=== PATIENT | female | born 1930 | race Caucasian/White ===

== ENCOUNTER 2017-07-03 11:50 | Inpatient (IN) | payer MEDICARE, OTHER ==
[~2017-07-03] VITALS: Ht 154.9 cm; Wt 68.2 kg
[~2017-07-03 11:50] MED LIST: ALBU8.5H8 IH; APIX5TAB PO; ATOR20TA65 PO; CLON.3 TD; ISOS60TA4 PO; LEVO75TA4 PO; MINO10TA3 PO; MOME17N NASAL; OLOP2.5D OU; OXYB5TAB10 PO; PIND5TAB PO
[2017-07-03] MEDS ORDERED: CYAN250014 PO (11:59)
[2017-07-03] MEDS ORDERED: SPIR50 PO (11:59)
[2017-07-03] MEDS ORDERED: CETI-193 PO (11:59)
[2017-07-03] MEDS ORDERED: PIND5TAB PO (11:59)
[2017-07-03] MEDS ORDERED: VITAD400 PO (11:59)
[2017-07-03] MEDS ORDERED: GLUC1CAP13 PO (11:59)
[2017-07-03] MEDS ORDERED: IBUP-1506 PO (11:59)
[2017-07-03] MEDS ORDERED: PINDOLOL 5 MG TABLET PO ONE (13:15)
[2017-07-03] MEDS: ASPIRIN 325 MG TABLET PO ONE ×2 (13:25→13:34)
[2017-07-03 13:26] LABS: BASOPHILS # (AUTO) 0.04 K/uL (0.00-0.20); BASOPHILS % (AUTO) 0.3 % (0.0-2.0); EOSINOPHILS % (AUTO) 0.62 % (1.0-6.0); HEMATOCRIT 27.2 % (36-46); LYMPHOCYTES # (AUTO) 1.1 K/uL (1.0-4.8); LYMPHOCYTES % (AUTO) 6.8 % (22.0-44.0); MEAN CORPUSCULAR HEMOGLOBIN 28.1 pg (26.0-34.0); MEAN CORPUSCULAR HGB CONC 32.9 G/dL (31.0-37.0); MEAN CORPUSCULAR VOLUME 86 fL (80-100); MONOCYTES # (AUTO) 0.7 K/uL (0.1-1.0); MONOCYTES % (AUTO) 4.5 % (2.0-9.0); NEUTROPHILS # (AUTO) 13.7 K/uL (1.8-7.7); PLATELET COUNT (AUTO) 363 K/uL (150-450); RED BLOOD CELL COUNT(AUTO) 3.19 MIL/uL (4.00-5.20); WHITE BLOOD COUNT (AUTO) 15.5 K/uL (4.5-11.0)
[2017-07-03 13:30] LABS: NEUTROPHILS % (AUTO) 87.9 % (40.0-70.0)
[2017-07-03 13:43] LABS: CALCIUM, TOTAL 10.1 mg/dL (8.8-10.5); CREATININE 2.7 mg/dL (0.60-1.30); POTASSIUM 5.3 mmol/L (3.5-5.1)
[2017-07-03 13:57] LABS: ALBUMIN 3.1 g/dL (3.4-5.0); BILIRUBIN,TOTAL 0.8 mg/dL (0.1-1.0); MAGNESIUM 1.6 mg/dL (1.80-2.40); PHOSPHORUS 3.4 mg/dL (2.5-4.9); THYROID STIMULATING HORMONE 4.63 uIU/mL (0.36-3.74); TOTAL PROTEIN, SERUM 7.4 g/dL (6.4-8.2)
[2017-07-03] MEDS ORDERED: SODIUM CHLORIDE 0.9% 1,000 ML IV ONE (14:30)
[2017-07-03] MEDS ORDERED: BISACODYL 10 MG RECTAL RECTAL SUPPOSITORY PR PRN (14:45)
[2017-07-03] MEDS ORDERED: ALBUTEROL SULFATE 2.5 MG/0.5 ML NEB SOLUTION NEB PRN (14:45)
[2017-07-03] MEDS ORDERED: CloNIDine HCL 0.1 MG TABLET PO PRN (15:00)
[2017-07-03] MEDS: METOPROLOL TARTRATE 25 MG TABLET PO SCH ×2 (15:23→20:57)
[2017-07-03] MEDS: CefTRIAXone 1 GM/DEXTROSE 50 ML IV SCH (15:28)
[2017-07-03] MEDS ORDERED: ACETAMINOPHEN 325 MG TABLET PO PRN (15:45)
[2017-07-03] MEDS ORDERED: 0.9% SODIUM CHLORIDE 10 ML SYRINGE IVP PRN (15:45)
[2017-07-03] MEDS ORDERED: ONDANSETRON HCL 4 MG/2 ML VIAL IVP PRN (15:45)
[2017-07-03 17:39] LABS: APPEARANCE,URINE CLEAR (CLEAR); GLUCOSE, URINE (UA) NEGATIVE (NEGATIVE); KETONES,URINE NEGATIVE (NEGATIVE); LEUKOCYTE ESTERASE ,URINE NEGATIVE (NEGATIVE); OCCULT BLOOD,URINE LARGE (NEGATIVE); PH,URINE 5.5 (5.0-8.0); PROTEIN,URINE POS 1+ (NEGATIVE)
[2017-07-03 17:53] LABS: SQUAMOUS EPITHELIAL CELL,UR Moderate /LPF (None Seen)
[2017-07-03 18:00] VITALS: BP 166/94
[2017-07-03] MEDS: ACETAMINOPHEN 325 MG TABLET PO PRN (19:01)
[2017-07-03 20:09] VITALS: BP 142/71
[2017-07-03] MEDS: DOCUSATE SODIUM 100 MG CAPSULE PO SCH (20:58)
[2017-07-03] MEDS: APIXABAN 2.5 MG TABLET PO SCH (20:58)
[2017-07-04 00:04] VITALS: BP 113/58
[2017-07-04 05:15] VITALS: BP 142/77
[2017-07-04 06:39] LABS: CALCIUM, TOTAL 9.4 mg/dL (8.8-10.5); CREATININE 2.51 mg/dL (0.60-1.30); POTASSIUM 5.5 mmol/L (3.5-5.1)
[2017-07-04 06:55] LABS: BASOPHILS % (AUTO) 0.4 % (0.0-2.0); EOSINOPHILS % (AUTO) 0.7 % (1.0-6.0); HEMATOCRIT 23.7 % (36-46); HEMOGLOBIN 7.8 g/dL (12.0-16.0); LYMPHOCYTES # (AUTO) 1.3 K/uL (1.0-4.8); LYMPHOCYTES % (AUTO) 10.8 % (22.0-44.0); MEAN CORPUSCULAR HEMOGLOBIN 28.1 pg (26.0-34.0); MEAN CORPUSCULAR HGB CONC 32.9 G/dL (31.0-37.0); MEAN CORPUSCULAR VOLUME 85 fL (80-100); MONOCYTES # (AUTO) 0.8 K/uL (0.1-1.0); MONOCYTES % (AUTO) 7.2 % (2.0-9.0); NEUTROPHILS # (AUTO) 9.5 K/uL (1.8-7.7); NEUTROPHILS % (AUTO) 80.9 % (40.0-70.0); PLATELET COUNT (AUTO) 321 K/uL (150-450); RED BLOOD CELL COUNT(AUTO) 2.78 MIL/uL (4.00-5.20); RED CELL DISTRIBUTION WIDTH 15.1 % (11.5-14.5); WHITE BLOOD COUNT (AUTO) 11.7 K/uL (4.5-11.0)
[2017-07-04 08:01] VITALS: BP 120/56
[2017-07-04] MEDS: METOPROLOL TARTRATE 25 MG TABLET PO SCH ×2 (09:14→20:16)
[2017-07-04] MEDS: DOCUSATE SODIUM 100 MG CAPSULE PO SCH ×3 (09:14→20:21)
[2017-07-04] MEDS: PANTOPRAZOLE SODIUM 40 MG DR TABLET PO SCH (09:14)
[2017-07-04] MEDS: APIXABAN 2.5 MG TABLET PO SCH ×2 (09:14→20:16)
[2017-07-04] MEDS ORDERED: SODIUM CHLORIDE 0.9% 1,000 ML IV ONE (10:30)
[2017-07-04] MEDS: SOD FERRIC GLUC COMPLX/SUCROSE 125 MG in SODIUM CHLORIDE 0.9% 100 ML IV SCH (11:22)
[2017-07-04 11:29] VITALS: BP 146/68
[2017-07-04 15:48] VITALS: BP 133/81
[2017-07-04] MEDS: CefTRIAXone 1 GM/DEXTROSE 50 ML IV SCH (16:07)
[2017-07-04] MEDS: ACETAMINOPHEN 325 MG TABLET PO PRN (16:07)
[2017-07-04 20:14] VITALS: BP 124/61
[2017-07-05] VITALS (7 sets, daily range): BP systolic 115–145; BP diastolic 59–98
[2017-07-05 07:44] LABS: BASOPHILS % (AUTO) 0.3 % (0.0-2.0); EOSINOPHILS % (AUTO) 1.8 % (1.0-6.0); HEMATOCRIT 24.7 % (36-46); HEMOGLOBIN 8.1 g/dL (12.0-16.0); LYMPHOCYTES # (AUTO) 1.1 K/uL (1.0-4.8); LYMPHOCYTES % (AUTO) 9.8 % (22.0-44.0); MEAN CORPUSCULAR HEMOGLOBIN 27.7 pg (26.0-34.0); MEAN CORPUSCULAR HGB CONC 32.8 G/dL (31.0-37.0); MEAN CORPUSCULAR VOLUME 85 fL (80-100); MONOCYTES # (AUTO) 0.9 K/uL (0.1-1.0); MONOCYTES % (AUTO) 7.6 % (2.0-9.0); NEUTROPHILS % (AUTO) 80.5 % (40.0-70.0); PLATELET COUNT (AUTO) 335 K/uL (150-450); RED BLOOD CELL COUNT(AUTO) 2.92 MIL/uL (4.00-5.20); WHITE BLOOD COUNT (AUTO) 11.2 K/uL (4.5-11.0)
[2017-07-05 07:47] LABS: CALCIUM, TOTAL 8.9 mg/dL (8.8-10.5); CREATININE 2.31 mg/dL (0.60-1.30); MAGNESIUM 1.5 mg/dL (1.80-2.40); POTASSIUM 4.8 mmol/L (3.5-5.1)
[2017-07-05] MEDS: APIXABAN 2.5 MG TABLET PO SCH ×2 (08:09→20:46)
[2017-07-05] MEDS: METOPROLOL TARTRATE 25 MG TABLET PO SCH (08:09)
[2017-07-05] MEDS: PANTOPRAZOLE SODIUM 40 MG DR TABLET PO SCH (08:15)
[2017-07-05] MEDS: DOCUSATE SODIUM 100 MG CAPSULE PO SCH ×2 (08:16→20:46)
[2017-07-05] MEDS ORDERED: SODIUM CHLORIDE 0.9% 250 ML IV ONE (09:59)
[2017-07-05] MEDS: SOD FERRIC GLUC COMPLX/SUCROSE 125 MG in SODIUM CHLORIDE 0.9% 100 ML IV SCH (09:59)
[2017-07-05] MEDS ORDERED: MAGNESIUM OXIDE 400 MG TABLET PO ONE (11:30)
[2017-07-05] MEDS: CefTRIAXone 1 GM/DEXTROSE 50 ML IV SCH (15:28)
[2017-07-05] MEDS: METOPROLOL TARTRATE 50 MG TABLET PO SCH (20:46)
[2017-07-05] MEDS ORDERED: GuaiFENesin/D-METHORPHAN [SUGAR-FREE] 200-20MG/10 ML SYRUP UDCUP PO PRN (21:30)
[2017-07-05] MEDS ORDERED: ALBUTEROL SULFATE 2.5 MG/0.5 ML NEB SOLUTION NEB PRN (21:30)
[2017-07-05] MEDS: HYPROMELLOSE 0.5% 15 ML OPHTHALMIC SOLUTION OU SCH (22:41)
[2017-07-06] VITALS (7 sets, daily range): BP systolic 112–143; BP diastolic 60–82
[2017-07-06 06:00] LABS: BASOPHILS % (AUTO) 0.4 % (0.0-2.0); EOSINOPHILS % (AUTO) 1.8 % (1.0-6.0); HEMATOCRIT 24.2 % (36-46); HEMOGLOBIN 7.9 g/dL (12.0-16.0); LYMPHOCYTES # (AUTO) 1.5 K/uL (1.0-4.8); MEAN CORPUSCULAR HEMOGLOBIN 27.8 pg (26.0-34.0); MEAN CORPUSCULAR HGB CONC 32.7 G/dL (31.0-37.0); MEAN CORPUSCULAR VOLUME 85 fL (80-100); MONOCYTES # (AUTO) 0.9 K/uL (0.1-1.0); NEUTROPHILS # (AUTO) 9.6 K/uL (1.8-7.7); NEUTROPHILS % (AUTO) 78.8 % (40.0-70.0); PLATELET COUNT (AUTO) 340 K/uL (150-450); RED BLOOD CELL COUNT(AUTO) 2.84 MIL/uL (4.00-5.20); RED CELL DISTRIBUTION WIDTH 14.9 % (11.5-14.5); WHITE BLOOD COUNT (AUTO) 12.1 K/uL (4.5-11.0)
[2017-07-06 06:16] LABS: ALBUMIN 2.4 g/dL (3.4-5.0); BILIRUBIN,TOTAL 0.3 mg/dL (0.1-1.0); CALCIUM, TOTAL 9.2 mg/dL (8.8-10.5); CREATININE 2.22 mg/dL (0.60-1.30); MAGNESIUM 1.6 mg/dL (1.80-2.40); POTASSIUM 4.8 mmol/L (3.5-5.1); TOTAL PROTEIN, SERUM 5.8 g/dL (6.4-8.2)
[2017-07-06] MEDS: PANTOPRAZOLE SODIUM 40 MG DR TABLET PO SCH (08:02)
[2017-07-06] MEDS: METOPROLOL TARTRATE 50 MG TABLET PO SCH ×2 (08:03→21:10)
[2017-07-06] MEDS: DOCUSATE SODIUM 100 MG CAPSULE PO SCH ×2 (08:03→21:00)
[2017-07-06] MEDS: HYPROMELLOSE 0.5% 15 ML OPHTHALMIC SOLUTION OU SCH ×2 (08:03→21:09)
[2017-07-06] MEDS: APIXABAN 2.5 MG TABLET PO SCH ×2 (08:03→21:10)
[2017-07-06] MEDS: SOD FERRIC GLUC COMPLX/SUCROSE 125 MG in SODIUM CHLORIDE 0.9% 100 ML IV SCH (13:45)
[2017-07-06] MEDS ORDERED: MAGNESIUM OXIDE 400 MG TABLET PO ONE (14:15)
[2017-07-06] MEDS ORDERED: CLON.3P TD (14:16)
[2017-07-06] MEDS: CefTRIAXone 1 GM/DEXTROSE 50 ML IV SCH (14:59)
[2017-07-06] MEDS: ACETAMINOPHEN 325 MG TABLET PO PRN (16:17)
[2017-07-06] MEDS: AMIODARONE HCL 200 MG TABLET PO SCH (21:10)
[2017-07-07 03:44] VITALS: BP 134/84
[2017-07-07] MEDS: ACETAMINOPHEN 325 MG TABLET PO PRN (03:44)
[2017-07-07 07:54] VITALS: BP 136/77
[2017-07-07] MEDS ORDERED: METO50TA5 PO (08:08)
[2017-07-07] MEDS ORDERED: AMIO200T2 PO (08:09)
[2017-07-07] MEDS ORDERED: APIX2.5T PO (08:10)
[2017-07-07 08:11] LABS: ANION GAP 6 mmol/L (8-16); CARBON DIOXIDE 26 mmol/L (22-29); CHLORIDE 103 mmol/L (98-107); CREATINE KINASE, TOTAL 12 U/L (26-192); CREATININE 2.27 mg/dL (0.60-1.30); GLOMERULAR FILTR. RATE CALC 20 mL/min (>60); POTASSIUM 4.8 mmol/L (3.5-5.1); SODIUM SERUM 135 mmol/L (136-145); UREA NITROGEN, BLOOD 20 mg/dL (7-18)
[2017-07-07 08:21] LABS: B-TYPE NATRIURETIC PEPTIDE 512 pg/mL (0-100)
[2017-07-07] MEDS ORDERED: MAGNESIUM OXIDE 400 MG TABLET PO ONE (08:30)
[2017-07-07] MEDS: DOCUSATE SODIUM 100 MG CAPSULE PO SCH (09:34)
[2017-07-07] MEDS: APIXABAN 2.5 MG TABLET PO SCH (09:34)
[2017-07-07] MEDS: PANTOPRAZOLE SODIUM 40 MG DR TABLET PO SCH (09:34)
[2017-07-07] MEDS: METOPROLOL TARTRATE 50 MG TABLET PO SCH (09:34)
[2017-07-07] MEDS: AMIODARONE HCL 200 MG TABLET PO SCH (09:34)
[2017-07-07] MEDS: HYPROMELLOSE 0.5% 15 ML OPHTHALMIC SOLUTION OU SCH (09:35)
[2017-07-07] MEDS: SOD FERRIC GLUC COMPLX/SUCROSE 125 MG in SODIUM CHLORIDE 0.9% 100 ML IV SCH (11:29)
[2017-07-07 11:40] VITALS: BP 139/65
== END 2017-07-07 15:25 | disposition home or self-care (01) | DRG 309 ==
LOC: EMS 11:52 → 5S 16:36
PROVIDERS: ADMIT Internal Medicine; ATTEND Internal Medicine
DX: I48.91 Unspecified atrial fibrillation (principal); N17.9 Acute kidney failure, unspecified; E44.0 Moderate protein-calorie malnutrition; I49.5 Sick sinus syndrome; N39.0 Urinary tract infection, site not specified; E86.0 Dehydration; E87.5 Hyperkalemia; D63.8 Anemia in other chronic diseases classified elsewhere; D64.9 Anemia, unspecified; E03.9 Hypothyroidism, unspecified; I12.9 Hypertensive chronic kidney disease with stage 1 through stage 4 chronic kidney disease, or unspecified chronic kidney disease; I25.10 Atherosclerotic heart disease of native coronary artery without angina pectoris; N18.3 Chronic kidney disease, stage 3 (moderate); Z79.01 Long term (current) use of anticoagulants; Z82.49 Family history of ischemic heart disease and other diseases of the circulatory system; Z95.0 Presence of cardiac pacemaker
CPT/HCPCS: 51701; 82271; 83735; 84100; 84443; 87081; 93005; 93306; 96360; 96361; 97161; 99285; J0696; J2916; J7030; J7050